=== PATIENT | male | born 1960 | race Caucasian/White ===

== ENCOUNTER → 2017-04-15 | Outpatient (CLI) | payer MEDICARE ==
[~2017-04-15] MED LIST: CALCIUM 500 +1 EAC6 PO; HYDROCODON-ACE1 EAC5 PO; METAMUCIL PO; VITAMIN D2000 UNIT PO
--- NOTE | ~2017-04-15 | CR63 ---
[facility] A Service of [facility] RADIOLOGY TEXT RESULTS PATIENT: LAUREN LOW LOCATION: [facility] : 60 UNIT #: [id number] AGE: [address]: Tom Ayala MD SEX: M ORDER DR: [id number] [facility] [address] [place], [place] [address] [id number] O MR#: [id number] Acc #: [id number] NAME: LAUREN LOW : 1960 SEX: M STUDY DATE/TIME: 04/15/2017 11:25 UNIT: [facility] ROOM: STUDY DESCRIPTION: CR Chest 2 View Attending Physician: Tom Ayala M.D. Referring Physician: Tom Ayala M.D. Ordering Physician: Tom Ayala M.D. Primary Care Physician: Primary Care Physician No MEDICAL IMAGING REPORT This report is preliminary unless electronic signature is present EXAM Chest, 04/15/2017 HISTORY 56-year-old male patient preop revision right total hip components. COMPARISON None FINDINGS Two-view chest demonstrates normal cardiac size and configuration. Hilar structures and mediastinal contours are preserved. Lungs are hyperinflated but clear bilaterally. IMPRESSION Mild generalized pulmonary hyperinflation only. No acute chest finding. Dictated by... Tien Barfield M.D. THIS IS AN ELECTRONICALLY VERIFIED REPORT Tien Barfield M.D. at 04/15/2017 3:35 PM Abelardo TD: 04/15/2017 13:29 JOB #: [id number] MEDICAL IMAGING REPORT Page 1 of 1 COPY
--- NOTE | ~2017-04-15 | EKG ---
PATIENT: LAUREN LOW UNIT #: [id number] Ventricular Rate: 63 BPM Atrial Rate: 63 BPM P-R Interval: 184 ms QRS Duration: 128 ms Q-T Interval: 434 ms QTC Calculation(Bezet): 444 ms P [place]: 7 degrees Calculated R [place]: 17 degrees Calculated T [place]: 42 degrees Diagnosis Line: Normal sinus rhythm Diagnosis Line: Right bundle branch block Diagnosis Line: Abnormal ECG Diagnosis Line: No previous ECGs available Diagnosis Line: Confirmed by TAMI BERMEO MD ([id number]) on 04/16/2017 Diagnosis Line: 6:33:49 PM INTERPRETING MD: ELVIE PAYAN
--- NOTE | ~2017-04-15 | CO ---
Unit #: [id number] #: [id number] Patient: LAUREN LOW [id number] [address] [address] [id number] O MR#: [id number] NAME: LAUREN LOW ROOM: Age: 56 Sex: M Admission Date: 04/15/2017 : 1960 Attending Physician: Tom Ayala M.D. Primary Care Physician: Primary Care Physician No Consultation Date: 04/15/2017 CONSULTATION REPORT REASON FOR CONSULTATION Preoperative medical evaluation prior to revision right total hip arthroplasty scheduled by Dr. Ayala for 04/27/2017. HISTORY OF PRESENT ILLNESS The patient is a 56-year-old male, who presents to preprocedural screening for the reasons indicated above. He reports right hip pain at his baseline today without other complaints. He denies upper back, arm, neck or jaw pain. Denies dyspnea on exertion, paroxysmal nocturnal dyspnea, orthopnea, and sleep apnea. Denies lightheadedness, dizziness, presyncope, syncope, and palpitations. He denies history of myocardial infarction, congestive heart failure, CVA, TIA, insulin use or renal disease. He has been evaluated by Dr. yAala and scheduled for the above-referenced procedure. PAST MEDICAL HISTORY 1. Osteoarthritis. 2. Diabetes mellitus, non-insulin dependent. 3. Hepatitis C. 4. Hypertension. 5. Questionable history of acute renal failure. 6. Seizures on no medications. 7. Peripheral vascular disease. 8. Gastroparesis. 9. Marijuana use. 10. Anxiety depression. 11. History of diverticulitis. 12. History of back pain. 13. History of MRSA. 14. Recent right rib fractures, healing. 15. History of C. diff after first hip surgery. 16. Left plantar foot ulcer. 17. Poor dentition with cavity and left maxillary tooth. PAST SURGICAL HISTORY 1. Right hip surgery x2. 2. Colon resection with colostomy and colostomy reversal and fistula repair. 3. Four toes amputated on the right foot. 4. Left foot fourth toe removed. 5. Hernia repair x2. 6. Right ankle surgery. Please note, the patient denies a personal and family history of complications to anesthesia. Unit #: [id number] #: [id number] Patient: LAUREN LOW SOCIAL HISTORY Denies tobacco use, EtOH use. He occasionally smokes marijuana. FAMILY HISTORY Father had myocardial infarction. ALLERGIES Codeine and cyclobenzaprine, reaction will need to be confirmed. CURRENT MEDICATIONS 1. Hydrocodone-acet 10/325 mg tab one p.o. t.i.d. 2. Metamucil daily. 3. Calcium 500 plus D caplet one p.o. daily. 4. Vitamin D 2000 units p.o. daily. PHYSICAL EXAMINATION GENERAL: A 56-year-old male, awake, alert, in no acute distress, walks with antalgic gait. VITAL SIGNS: Temperature 97.4, heart rate 62, respiratory rate 16, blood pressure 109/69, oxygen saturation 99% on room air. HEENT: Atraumatic, normocephalic. Sclerae anicteric. No discharge from eyes, ears, or nares. LYMPH: No preauricular, postauricular, tonsillar, submental, anterior or posterior cervical adenopathy. ENDOCRINE: No thyromegaly, thyroid nodules, or tenderness. RESPIRATORY: Clear to auscultation in all martines bilaterally without wheezes, rhonchi, or rales. CARDIOVASCULAR: S1, S2. Regular rate and rhythm without murmur or rub. GI: Bowel sounds are positive x4. Soft, nontender, nondistended. EXTREMITIES: No edema, cyanosis, or clubbing. Left foot plantar wound covered with scab versus eschar without drainage. No erythema or edema at the base of the first metatarsal joint. MUSCULOSKELETAL: Strength 5/5 in all extremities bilaterally flexion-extension. NEUROLOGIC: Alert and oriented x3. Speech clear. Follows instructions for examination. DIAGNOSTIC STUDIES LABORATORY RESULTS: Hemoglobin A1c 5.8. WBC 7.3, hemoglobin 15.2, hematocrit 45.8, platelets [id number], sedimentation rate 13, C-reactive protein 0.8. Sodium 135, potassium 3.9, chloride 104, CO2 of 24, glucose 164, BUN 21, creatinine 0.8, calcium 9.1, AST 26, ALT 26, alkaline phos 115, bilirubin total 1.1, total protein 7.2, albumin 3.8. Blood type A positive, antibody screen negative. PT 10.0, INR 1.0. Urinalysis, negative except protein trace with neither microscopic nor culture indicated. MRSA nasal screen report pending at this time. Urine drug screen to be added off urinalysis to urine in lab today. IMAGING STUDIES: Two-view chest x-ray report pending at this time. CARDIOLOGY STUDIES: 12-lead EKG, normal sinus rhythm, right bundle-branch block. Abnormal ECG. Confirmed report pending at this time. IMPRESSION The patient is a 56-year-old male, who presents to preprocedural Unit #: [id number] #: [id number] Patient: LAUREN LOW. 1. Medical evaluation prior to right total hip revision. The patient's [place] revised cardiac risk index is equal to 0.4%. This represents the patient's perioperative risk of fatal or nonfatal myocardial infarction, cardiopulmonary arrest, arrhythmia and/or pulmonary edema. This has been discussed in detail with the patient. She wishes to proceed with surgery as scheduled at this time. 2. Diabetes mellitus, non-insulin dependent. Monitor the patient's blood sugar perioperatively with Accu-Cheks and place the patient on constant carbohydrate diet. Low-dose sliding scale insulin protocol. The patient reports no diabetes medications at this time. 3. Hep C, liver function tests are within normal range today. 4. Hypertension, stable. Monitor blood pressure perioperatively and adjust any medications or IV fluids accordingly. 5. History of acute renal failure. The patient's kidney function is stable today. 6. History of seizures. The patient is on no medications at this time. 7. Peripheral vascular disease. 8. Gastroparesis. 9. Marijuana use. Urine drug screen results are pending at this time. 10. Anxiety and depression, stable. 11. History of Methicillin-resistant Staphylococcus aureus, contact precautions will apply. 12. Recent right rib fractures. The patient states that he has no complaints and they are healing at this time. 13. History of clostridium difficile after first hip surgery. 14. Cavity, left upper teeth. I recommended the patient receive preoperative dental clearance. 15. Left plantar metatarsal joint ulcer, likely diabetic foot ulcer- although there is no indication of active infection at this time. The patient has been referred to Dr. Ayala's office for evaluation prior to surgery. The patient was worked in to his office schedule and he has gone there at this time. Thank you for allowing us to participate in care of the patient. We will gladly follow him for postop medical management pending order of Dr. Ayala. Dictated by... Gilma Limon A.P.R.N. for Radhika Santiago/niraj TD: 04/16/2017 13:49 JOB #: [id number] CONSULTATION REPORT Page 1 of 1 X Gilma Limon [employer] X CONSULTATION REPORT
[2017-04-15 10:27] LABS: URINE APPEARANCE CLEAR; URINE BILIRUBIN NEG (NEG); URINE BLOOD NEG (NEG); URINE COLOR DK YELLOW; URINE GLUCOSE 250 MG/DL (NEG); URINE KETONE TRACE (NEG); URINE LEUKOCYTE ESTERASE NEG (NEG); URINE NITRATE NEG (NEG); URINE PH 5.5 (5-8); URINE PROTEIN TRACE (NEG); URINE SPECIFIC GRAVITY 1.028 (1.003-1.035)
[2017-04-15 10:38] LABS: URINE SOURCE CLEAN CATCH
[2017-04-15 10:39] LABS: CULTURE INDICATED? NO
[2017-04-15 10:50] LABS: HEMATOCRIT 45.8 % (38.0-50.0); HEMOGLOBIN 15.2 gm/dL (13.0-16.0); MEAN CELL VOLUME 85.2 FL (83-96); MEAN CORPUSCULAR HEMOGLOBIN 28.3 PG (28-34); MEAN CORPUSCULAR HGB CONC 33.2 g/dL (30-36); MEAN PLATELET VOLUME 8.6 FL (6.5-11.5); RED BLOOD COUNT 5.38 X10e (3.90-5.60); RED CELL DISTRIBUTION WIDTH 14.8 % (11.0-15.5); WHITE BLOOD COUNT 7.3 X10e3 (4.0-10.5)
[2017-04-15 11:07] LABS: ALBUMIN SERUM 3.8 g/dL (3.5-5.0); BILIRUBIN,TOTAL 1.1 mg/dL (0.2-2.0); BUN/CREATININE RATIO 26.25; CALCIUM SERUM 9.1 mg/dL (8.4-10.2); CREATININE SERUM 0.8 mg/dL (0.6-1.4); GLOM FILT RATE Estimated 99.9 mL/min (>60); POTASSIUM 3.9 mmol/L (3.5-5.1); PROTEIN TOTAL SERUM 7.2 g/dL (6.0-8.3)
[2017-04-15 15:16] LABS: AMPHETAMINE NEG (NEG); BARBITURATES NEG (NEG); BENZODIAZEPINES POS (NEG); COCAINE NEG (NEG); MARIJUANA POS (NEG); OPIATES POS (NEG); TRICYCLIC ANTIDEPRESSANTS NEG (NEG); U METHADONE NEG (NEG)
== END | disposition home or self-care (01) ==
LOC: CAMB 09:37
PROVIDERS: Orthopaedic Surgery
DX: Z01.818 Encounter for other preprocedural examination (principal); T84.030A Mechanical loosening of internal right hip prosthetic joint, initial encounter; E11.9 Type 2 diabetes mellitus without complications; B19.20 Unspecified viral hepatitis C without hepatic coma; I10 Essential (primary) hypertension; N17.9 Acute kidney failure, unspecified; R56.9 Unspecified convulsions; I73.9 Peripheral vascular disease, unspecified; K31.84 Gastroparesis; J98.4 Other disorders of lung; Z79.01 Long term (current) use of anticoagulants
CPT/HCPCS: 36415; 71020; 80053; 80307; 81003; 83036; 85027; 85610; 85652; 86140; 86850; 86900; 86901; 87070; 93005